=== PATIENT | female | born 2005 | race Asian ===

== ENCOUNTER → 2024-11-09 14:37 | Outpatient (REF) | payer OTHER, SELFPAY | LOC: PAVMRI 14:37 | PROVIDERS: ATTENDING PHYSICIAN Internal Medicine Endocrinology, Diabetes & Metabolism; FAMILY PHYSICIAN Family Medicine | DX: N91.1 Secondary amenorrhea (principal); Z86.39 Personal history of other endocrine, nutritional and metabolic disease | CPT/HCPCS: 70553; A9575 ==